=== PATIENT | male | born 1975 | race Caucasian/White ===

== ENCOUNTER 2017-11-03 17:01 | Emergency (ER) | payer BC ==
[2017-11-03 17:16] VITALS: RESP 16; TEMP 98.6
--- NOTE | 2017-11-03 17:51 | EDPHY ---
H & P Time Seen by Provider: 11/03/17 17:22 HPI/ROS: CHIEF COMPLAINT: Left wrist pain post skiing fall HISTORY OF PRESENT ILLNESS: 42-year-old [id number] male arrives via private vehicle after he was skiing at [place], fell onto his left wrist and hand. He is complaining of immediate pain. Splinted by kettle skimmer and transported via private vehicle. No paresthesia to the left hand. No head injury. No proximal pain or injury. Intact skin. PHYSICAL EXAM (Prior to examination, patient consented to physical exam, hands were washed and my usual and customary physical exam procedures followed) 1) GENERAL: Well-developed, well-nourished, alert and oriented. Appears to be in no acute distress. 2) HEAD: Normocephalic 3) HEENT: Pupils equal, round, reactive to light bilaterally. 4) LUNGS: Breathing comfortably. 5) MUSCULOSKELETAL: Noted deformity. No tenting. Soft compartments. Normal coloration. 6) SKIN: Intact 7) VASCULAR: pulses and cap refill present are brisk 8) NEUROLOGIC: Radial, ulnar, median nerve function intact with no deficits appreciated on exam DIFFERENTIAL DIAGNOSIS: in no particular order including but not limited to fracture, sprain, compartment syndrome Smoking Status: Never smoked Constitutional: Initial Vital Signs Temperature (C) 37 C 11/03/17 17:13 Heart Rate 68 11/03/17 17:13 Respiratory Rate 16 11/03/17 17:13 Blood Pressure 139/83 H 11/03/17 17:13 O2 Sat (%) 94 11/03/17 17:13 O2 Delivery Mode Room Air Allergies/Adverse Reactions: No Known Allergies Allergy (Unverified 11/03/17 17:13) Home Medications: Medication Instructions Recorded Hydrocodone/APAP 5/325 [[place] 1 tab PO Q6 PRN #15 tab 11/03/17 5/325 (RX)] MDM/Departure - MDM Imaging Results: Imaging Impressions Wrist X-Ray 11/03/17 17:17 Impression: 1. Markedly comminuted distal left radial metaphyseal fracture with intra- articular extension. 2. Ulnar styloid avulsion. Wrist X-Ray 11/03/17 18:42 Impression: Decrease in displacement of the markedly comminuted distal left radial fracture following reduction. Images reviewed myself Procedures: 6:41 p.m.: Procedure: Fracture reduction Indication: Fracture of the distal radius Indications, risks and benefits discussed with patient and consent obtained. A hematoma block of 0.5% bupivicaine placed by myself. Traction and countertraction applied achieving a visible and palpable reduction. Unfortunately, whenever distal traction was removed the fracture would return to near baseline. The area was splinted with sugar-tong Orthoglass splint and sling. After application of the splint I returned and re-examined the patient. The splint was adequately immobilizing the joint and distal to the splint the patient's circulation and sensation were intact. Patient shows no signs of compartment syndrome. Was given orthopedic precautions. Medications Given: Discontinued Medications Oxycodone/Acetaminophen (Percocet 5/325) 2 tab PO EDNOW ONE Stop: 11/03/17 19:21 Last Admin: 11/03/17 19:24 Dose: 2 tab ED Course/Re-evaluation: Care of patient under supervision of secondary supervising physician Dr Guillory with whom I discussed care. . Patient was re-evaluated with serial examinations. I consulted with on-call orthopedics Dr. Luna 5:49 p.m., he reviewed the patient's images remotely and recommended follow up in the office tomorrow as he will more than likely necessitate surgery later this week. Reduction with hematoma block performed in the ER. However due to the complexity of the patient's fracture, as soon as traction was removed distally the fracture would return to near baseline position. He remains neurovascularly intact with no evidence of median nerve deficits. He has been informed that he is a risk of compartment syndrome. He has no evidence of this currently however I had a lengthy discussion with him and his given him the signs and symptoms and compartment syndrome and stressed the importance of close follow-up she developed these signs and/or symptoms. Otherwise he will follow up with Dr. Luna tomorrow. He feels comfortable being discharged. Usual and customary orthopedic precautions and instructions. - Depart Disposition: Home, Routine, Self-Care Clinical Impression: Displaced fracture of left ulna styloid process, initial encounter for closed fracture Fracture of left distal radius Qualifiers: Encounter type: initial encounter Fracture type: closed Fracture morphology: Colles' Qualified Code(s): S52.532A - Colles' fracture of left radius, initial encounter for closed fracture Snowboarding accident Qualifiers: Encounter type: initial encounter Qualified Code(s): V00.318A - Other snowboard accident, initial encounter Condition: Good Instructions: Wrist Fracture in Adults (ED) Additional Instructions: Return to the ER immediately if you experience discoloration, have worsening pain, numbness, tingling, or any other symptoms that concern you. If you received x-rays in the emergency department today, be advised, that ligamentous , tendon, muscular, and other non-bony injury cannot be fully ruled out. Try to keep your affected extremity elevated above the level of your chest, and keep cold packs on the affected area, for the next 48 hours. Prescriptions: Hydrocodone/APAP 5/325 [[place] 5/325 (RX)] 1 tab PO Q6 PRN #15 tab PRN Reason: Pain, Severe Referrals: Gabbie Luna MD [Medical Doctor] - 1 day without fail (Call Dr. Luna's office tomorrow, tell them it is in the ER follow-up.)
[2017-11-03] MEDS ORDERED: OXYCODONE/APAP 5/325 TAB PO ONE (19:20)
[2017-11-03 19:25] VITALS: BP 134/83; PULSE 62; O2SAT 96
== END 2017-11-03 19:35 | disposition home or self-care (01) ==
PROC: 0PSJXZZ Reposition Left Radius, External Approach (ICD-10-PCS; principal; 2017-11-03)
DX: S52.532A Colles' fracture of left radius, initial encounter for closed fracture (principal); S52.612A Displaced fracture of left ulna styloid process, initial encounter for closed fracture; V00.321A Fall from snow-skis, initial encounter; Y99.8 Other external cause status; Y93.23 Activity, snow (alpine) (downhill) skiing, snowboarding, sledding, tobogganing and snow tubing
CPT/HCPCS: A4565; L3925